=== PATIENT | male | born 1995 | race Two or more races ===

== ENCOUNTER 2018-08-23 19:34 | Emergency (ER) | payer BC ==
[~2018-08-23] VITALS: Ht 180.3 cm; Wt 90.7 kg
[2018-08-23 20:00] VITALS: BP 141/90
[2018-08-23] MEDS ORDERED: HYDROcodone-ACET 5/325MG TAB PO ONE (23:15)
[2018-08-23] MEDS ORDERED: IBUPROFEN 800 MG TAB PO ONE (23:15)
== END 2018-08-23 23:41 | disposition home or self-care (01) ==
LOC: ER 19:34
DX: S62.327A Displaced fracture of shaft of fifth metacarpal bone, left hand, initial encounter for closed fracture (principal); V86.06XA Driver of dirt bike or motor/cross bike injured in traffic accident, initial encounter; Y93.89 Activity, other specified; Y99.8 Other external cause status; Y92.89 Other specified places as the place of occurrence of the external cause
CPT/HCPCS: 29125; 73130

== ENCOUNTER 2022-07-10 09:15 | Emergency (ER) | payer BC, OTHER ==
[~2022-07-10] VITALS: Ht 180.3 cm; Wt 90.2 kg
[2022-07-10] MEDS ORDERED: IBUP600T28 PO (13:23)
[2022-07-10] MEDS ORDERED: KETOROLAC TROMETH 30 MG/ML 1ML VIAL IM ONE (13:30)
[2022-07-10 13:35] VITALS: BP 146/83
== END 2022-07-10 13:35 | disposition home or self-care (01) ==
LOC: ER 09:15
DX: S83.92XA Sprain of unspecified site of left knee, initial encounter (principal); X50.1XXA Overexertion from prolonged static or awkward postures, initial encounter; Y93.89 Activity, other specified; Y92.89 Other specified places as the place of occurrence of the external cause; Y99.8 Other external cause status
CPT/HCPCS: 73562